=== PATIENT | female | born 1995 ===

== ENCOUNTER 2025-08-22 09:22 | Outpatient (AMB) | payer OTHER, SELFPAY ==
[2025-08-22 09:53] VITALS: BP 102/68; PULSE 73; RESP 15; TEMP 36.8; O2SAT 98; BMI 33.8
--- NOTE | 2025-08-22 09:53 | AM.OFFWIN_ITS ---
Intake Vital Signs 08/22/25 09:53 Height 5 ft 8 in Weight 222 lb BMI 33.8 BP 102/68 Blood Pressure Location Lt brachial Position Sitting Respiration 15 Pulse 73 Pulse Source Pulse Oximeter Temp 98.3 F Temp Source Oral Pulse Oximetry (%) 98 Oxygen Delivery Method Room Air Intake Visit Reasons: EP Glass in right foot/ heel of foot Intake Note: Pt is here today c/o Rt foot glass: Rt foot red and swollen happen yesterday Patient Tobacco Use Status: Current someday Tobacco user [employer] Developer Required: No Allergies No Known Allergies Allergy (Verified 08/22/25 09:53) HPI EP Glass in right foot/ heel of foot HPI Details Patient is a 29-year-old male with no underlying medical conditions, who comes to the walk-in clinic complaining of getting glass in his foot yesterday. He reports there was a piece sticking out which she removed, however upon wakening this morning, he has tenderness, swelling and reports he feels some glass retained. He denies fever chills, headache, dizziness, nausea vomiting or diarrhea, fatigue or weakness, myalgias, or other significant associated symptoms. No underlying immuno compromising conditions. [facility] Social History Patient Tobacco Use Status: Current someday Tobacco user Review of Systems Const All systems reviewed & are unremarkable except as noted in HPI and below Physical Exam Vital Signs: Last Vital Signs Temp 98.3 F 08/22/25 09:53 Pulse 73 08/22/25 09:53 Resp 15 08/22/25 09:53 BP 102/68 08/22/25 09:53 Pulse Ox 98 08/22/25 09:53 Oxygen Delivery Method Room Air 08/22/25 09:53 BMI result Body Mass Index 33.8 Const General: cooperative, healthy appearing, comfortable, no acute distress, alert, awake, Physically active and well groomed; No anxious, diaphoretic, ill appearing, intoxicated appearing, poor hygiene or tired appearing Nutritional Appearance: average body habitus Limitations: no limitations Cardio Rate: regular rate Skin Other: Good color, warm and dry Extrem Other: Patient has tenderness with palpation to right distal heel, with small area of edema just distal to puncture site. No obvious foreign body object localized with palpation. No induration or fluctuance, erythema or warmth noted. Full range of motion and strength to the foot which is neurovascularly intact distally Psych Appearance: grossly normal Mental Status: mental status grossly normal Speech and movement: Normal speech and movement present Affect: normal affect Attitude: cooperative Thought process: Normal thought process present Insight: Good insight present (Psych) Judgement: Good judgement present (Psych) Immunizations Boostrix Tdap 2.5 Lf unit-8 mcg-5 Lf/0.5 mL intramuscular syringe Performing Provider: MITESH Sharma Performing Location: [facility] [place] [facility] Administered by: Maribel Wong CMA on 08/22/25 10:41 Dose Route Admin Location Dispensed Lot Number Expiration Date 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 0.5 mL IM Right Deltoid 0.5 mL [id number] 08/14/27 81418-526-06 [employer] Total Dispensed Waste 0.5 mL 0 % VIS Given Date VIS Provided VIS Publication Date 08/22/25 Single Vaccine 21 Eligibility Eligibility Date Funding Source Not [facility] Eligible 08/22/25 Private Assessment & Plan Assessment & Plan (1) Puncture wound of plantar aspect of foot: Code(s): S91.339A - Puncture wound without foreign body, unspecified foot, initial encounter Qualifiers: Encounter type: initial encounter Laterality: right Qualified Code(s): S91.331A - Puncture wound without foreign body, right foot, initial encounter Plan: Patient is a 29-year-old male with no underlying immuno compromising issues or medical problems reported. He stepped on glass shards yesterday, with 1 apparent shard he was able to remove himself, but has persistent sensation of retained glass, and some mild edema next 2 puncture site. I can not localize the shard on palpating the area of tenderness, and explained to the patient how this foreign body would be radio opaque and difficult to excise even if visualized on x-ray. I think he should soak his foot a few times a day in warm soapy water or Epsom salts, and I wrote him for doxycycline for prophylaxis. He was also given a tetanus vaccine today for prophylaxis. Patient is not from this area, and will be leaving tomorrow so he can not be referred for follow up from here, although he reports that he does not have PCP at this time. As he is in the and has insurance, he might be able to make his own appointment for follow up as needed. I did tell him that if the glass starts to make its way out and he can remove it with forceps safely, that this would be the best option for him. If he has continued swelling, associated with erythema or warmth, he would need to follow up urgently or emergently, and we discussed this. Orders: Orders TDaP Immunization Today Z23 - Encounter for immunization Medications: New doxycycline hyclate 100 mg PO BID 14 caps 0RF 7 days Coding Level of Care Code New Pt Level 4 (93267) Diagnoses Puncture wound of plantar aspect of right foot, initial encounter S91.331A Encounter type: initial encounter Laterality: right
== END 2025-08-22 11:29 | disposition home or self-care (01) ==
PROVIDERS: Visit Provider Physician Assistant Medical
DX: Z23 Encounter for immunization (principal); S91.331A Puncture wound without foreign body, right foot, initial encounter

== ENCOUNTER → 2025-08-22 09:22 | Outpatient (BNVA) | payer OTHER, SELFPAY | PROVIDERS: Visit Provider Physician Assistant Medical | DX: S91.331A Puncture wound without foreign body, right foot, initial encounter (principal); W25.XXXA Contact with sharp glass, initial encounter; Y93.9 Activity, unspecified; Y92.9 Unspecified place or not applicable | CPT/HCPCS: 90471; 90715; 99202 ==